=== PATIENT | female | born 1940 | race Caucasian/White ===

== ENCOUNTER → 2016-10-07 | Outpatient (CLI) | payer MEDICARE, BC ==
--- NOTE | 2016-10-07 14:48 | RAD ---
DATE: 10/07/2016 EXAM: MAMMO ELIU SCREENING BILATERAL HISTORY: Screening COMPARISON: One year earlier This study was interpreted with the benefit of Computerized Aided Detection (CAD). FINDINGS: The breast parenchyma shows scattered fibroglandular densities. Breast parenchyma level B. There has not been a significant change in the appearance of the breasts compared to the previous exam IMPRESSION: Benign findings BI-RADS CATEGORY: 2 BENIGN FINDING(S) RECOMMENDED FOLLOW-UP: 12M 12 MONTH FOLLOW-UP PQRS compliance statement: Patient information was entered into a reminder system with a target due date 10/07/2017 for the next mammogram. Mammography is a sensitive method for finding small breast cancers, but it does not detect them all and is not a substitute for careful clinical examination. A negative mammogram does not negate a clinically suspicious finding and should not result in delay in biopsying a clinically suspicious abnormality. "Our facility is accredited by the [employer] Mammography [employer]."
== END | disposition home or self-care (01) ==
LOC: MAMMO 10:54
PROVIDERS: ATTEND Internal Medicine
DX: Z12.31 Encounter for screening mammogram for malignant neoplasm of breast (principal)
CPT/HCPCS: 77063; G0202; 77067

== ENCOUNTER → 2017-03-31 | Outpatient (CLI) | payer MEDICARE, BC ==
[~2017-03-31] MED LIST: BUPIVACAINE MPF 0.25% 10 ML VIAL. ONE; BUPIVACAINE MPF 0.5% 30 ML VIAL. ONE; IOHEXOL 300 MG/ML 50 ML VIAL. ONE; LIDOCAINE 1% PF 30 ML VIAL. ONE; methylPREDNISolone ACETATE 40 MG/ML VIAL. ONE
== END | disposition home or self-care (01) ==
LOC: SURG 13:59
PROVIDERS: ATTEND Anesthesiology
DX: M17.12 Unilateral primary osteoarthritis, left knee (principal); J45.909 Unspecified asthma, uncomplicated; M19.91 Primary osteoarthritis, unspecified site; E07.9 Disorder of thyroid, unspecified
CPT/HCPCS: 64450; J1030; J2001; J3490; Q9967

== ENCOUNTER → 2017-05-05 | Outpatient (CLI) | payer MEDICARE, BC ==
[~2017-05-05] MED LIST changes: -BUPIVACAINE MPF 0.5% 30 ML VIAL. ONE; +DEXAMETHASONE SOD PHOS 4 MG/ML VIAL ONE; -IOHEXOL 300 MG/ML 50 ML VIAL. ONE; +IV NORMAL SALINE 250ML 250 ML ONE; +LIDOCAINE (700MG/PATCH) PATCH. ONE; +MIDAZOLAM HCL PF 2 MG/2 ML VIAL. ONE; -methylPREDNISolone ACETATE 40 MG/ML VIAL. ONE
== END | disposition home or self-care (01) ==
LOC: SURG 13:11
PROVIDERS: ATTEND Anesthesiology
DX: M25.562 Pain in left knee (principal); Z96.652 Presence of left artificial knee joint
CPT/HCPCS: 64640; J1100; J2001; J2250; J3010; J3490; J7050; 64636

== ENCOUNTER → 2017-06-02 | Outpatient (CLI) | payer MEDICARE, BC | END | disposition home or self-care (01) | LOC: SURG 12:21 | PROVIDERS: ATTEND Anesthesiology | DX: M25.569 Pain in unspecified knee (principal); M79.2 Neuralgia and neuritis, unspecified; Z96.659 Presence of unspecified artificial knee joint | CPT/HCPCS: 99214 ==

== ENCOUNTER → 2017-07-14 | Outpatient (CLI) | payer MEDICARE, BC | END | disposition home or self-care (01) | LOC: SURG 13:11 | PROVIDERS: ATTEND Anesthesiology | DX: M25.561 Pain in right knee (principal); M25.562 Pain in left knee; Z96.659 Presence of unspecified artificial knee joint | CPT/HCPCS: 99214 ==

== ENCOUNTER → 2017-10-08 | Outpatient (CLI) | payer MEDICARE, BC ==
--- NOTE | 2017-10-08 12:56 | RAD ---
DATE: October 08, 2017 EXAM: MAMMO ELIU SCREENING BILATERAL HISTORY: Routine screening. COMPARISON: October 07, 2016. October 02, 2015. TECHNIQUE: 2D digital CC and MLO views were obtained. 3D tomosynthesis imaging was performed in the CC and MLO projections. This study was interpreted with the benefit of Computerized Aided Detection (CAD). FINDINGS: The breast parenchyma demonstrates scattered fibroglandular densities, category B. There is no worrisome mass or area of architectural distortion. Probable intraparenchymal lymph nodes or small cysts in the left breast inferiorly are stable. Few benign-appearing calcifications are noted, no suspicious groupings of microcalcifications are apparent. IMPRESSION: Benign findings. BI-RADS CATEGORY: 2 BENIGN FINDING RECOMMENDED FOLLOW-UP: 12M 12 MONTH FOLLOW-UP PQRS compliance statement: Patient information was entered into a reminder system with a target due date for the next mammogram. Mammography is a sensitive method for finding small breast cancers, but it does not detect them all and is not a substitute for careful clinical examination. A negative mammogram does not negate a clinically suspicious finding and should not result in delay in biopsying a clinically suspicious abnormality. "Our facility is accredited by the [employer] Mammography [employer]."
== END | disposition home or self-care (01) ==
LOC: MAMMO 10:44
PROVIDERS: ATTEND Internal Medicine
DX: Z12.31 Encounter for screening mammogram for malignant neoplasm of breast (principal); Z96.652 Presence of left artificial knee joint
CPT/HCPCS: 77063; 77067

== ENCOUNTER → 2017-10-13 | Outpatient (CLI) | payer MEDICARE, BC | END | disposition home or self-care (01) | LOC: SURG 12:42 | PROVIDERS: ATTEND Anesthesiology | DX: M25.561 Pain in right knee (principal); M25.562 Pain in left knee; M79.2 Neuralgia and neuritis, unspecified; Z96.652 Presence of left artificial knee joint | CPT/HCPCS: 99214 ==

== ENCOUNTER → 2018-10-21 | Outpatient (CLI) | payer MEDICARE, BC ==
--- NOTE | 2018-10-21 12:50 | RAD ---
DATE: 10/21/2018 EXAM: MAMMO ELIU SCREENING BILATERAL HISTORY: Routine screening COMPARISON: 10/08/2017 This study was interpreted with the benefit of Computerized Aided Detection (CAD). Breast Density: SCATTERED The breast parenchyma shows scattered fibroglandular densities. Breast parenchyma level B. FINDINGS: 2-D and 3-D tomosynthesis imaging was performed in CC and MLO projections. Several small smooth nodules in both breasts appear unchanged. No spiculated mass or architectural distortion is evident. No suspicious microcalcifications are evident. IMPRESSION: Stable mammograms without evidence of malignancy. BI-RADS CATEGORY: 2 BENIGN FINDING(S) RECOMMENDED FOLLOW-UP: 12M 12 MONTH FOLLOW-UP PQRS compliance statement: Patient information was entered into a reminder system with a target due date for the next mammogram. Mammography is a sensitive method for finding small breast cancers, but it does not detect them all and is not a substitute for careful clinical examination. A negative mammogram does not negate a clinically suspicious finding and should not result in delay in biopsying a clinically suspicious abnormality. "Our facility is accredited by the [employer] Mammography [employer]."
== END | disposition home or self-care (01) ==
LOC: MAMMO 11:11
PROVIDERS: ATTEND Internal Medicine
DX: Z12.31 Encounter for screening mammogram for malignant neoplasm of breast (principal); N63.20 Unspecified lump in the left breast, unspecified quadrant; N63.10 Unspecified lump in the right breast, unspecified quadrant
CPT/HCPCS: 77063; 77067

== ENCOUNTER → 2019-11-02 | Outpatient (CLI) | payer MEDICARE, BC ==
--- NOTE | 2019-11-04 18:15 | RAD ---
DATE: 11/02/2019 10:50 AM EXAM: MAMMO ELIU SCREENING BILATERAL HISTORY: Screening COMPARISON: 10/21/2018 Bilateral CC and MLO views of the breasts were performed. Bilateral breast tomosynthesis was performed in CC and MLO projections. This study was interpreted with the benefit of Computerized Aided Detection (CAD). FINDINGS: Breast Density: SCATTERED The breast parenchyma shows scattered fibroglandular densities. Breast parenchyma level B No suspicious masses, microcalcifications or architectural distortion is present to suggest malignancy in either breast. The visualized axillae are unremarkable. IMPRESSION: No mammographic evidence of malignancy. BI-RADS CATEGORY: 1 NEGATIVE RECOMMENDED FOLLOW-UP: 12M 12 MONTH FOLLOW-UP Annual screening mammography is recommended, unless clinically indicated sooner based on symptoms or change in physical exam. PQRS compliance statement: Patient information was entered into a reminder system with a target due date 11/02/2020 for the next mammogram. Mammography is a sensitive method for finding small breast cancers, but it does not detect them all and is not a substitute for careful clinical examination. A negative mammogram does not negate a clinically suspicious finding and should not result in delay in biopsying a clinically suspicious abnormality. "Our facility is accredited by the [employer] Mammography [employer]."
== END | disposition home or self-care (01) ==
LOC: MAMMO 10:39
PROVIDERS: ATTEND Internal Medicine
DX: Z12.31 Encounter for screening mammogram for malignant neoplasm of breast (principal)
CPT/HCPCS: 77063; 77067

== ENCOUNTER → 2020-11-05 | Outpatient (CLI) | payer MEDICARE, BC ==
--- NOTE | 2020-11-05 10:49 | RAD ---
EXAM: Bilateral digital screening mammogram with tomosynthesis. HISTORY: 80-year-old female presents for screening mammography. TECHNIQUE: Full-field digital craniocaudal and mediolateral oblique 2D and 3D tomosynthesis images of both breasts are obtained for evaluation. Computer aided detection was applied. COMPARISON: 11/02/2019 BREAST PARENCHYMAL DENSITY: Level B - Scattered fibroglandular densities. FINDINGS: There is no new suspicious mass, microcalcification or region of architectural distortion. IMPRESSION: BI-RADS Category 2: Benign finding(s). RECOMMENDATION: Annual mammography is recommended. If your mammogram demonstrates that you have dense breast tissue, which could hide abnormalities, and if you have other risk factors for breast cancer that have been identified, you might benefit from s upplemental screening tests that may be suggested by your ordering physician. Dense breast tissue, i n and of itself, is a relatively common condition. This information is not provided to cause undue c oncern, but rather to raise your awareness and to promote discussion with your physician regarding th e presence of other risk factors, in addition to dense breast tissue. A report of your mammography re sults will be sent to you and your physician. You should contact your physician if you have any ques tions or concerns regarding this report. Mammography is a sensitive method for finding small breast cancers, but it does not detect them all a nd is not a substitute for careful clinical examination. A negative mammogram does not negate a clin ically suspicious finding and should not result in delay in biopsying a clinically suspicious abnorma lity. PQRS compliance statement - Patient information was entered into a reminder system with a target due date for the next mammogram. "Our facility is accredited by the [employer] Mammography Program." Electronically signed by: Livier Amato MD (11/05/2020 10:47 AM) [id number]
== END ==
LOC: MAMMO 09:36
PROVIDERS: ATTEND Internal Medicine
DX: Z12.31 Encounter for screening mammogram for malignant neoplasm of breast (principal)
CPT/HCPCS: 77063; 77067

== ENCOUNTER 2021-04-16 05:58 | Observation (INO) | payer MEDICARE, BC ==
[~2021-04-16] VITALS: Ht 162.6 cm; Wt 86.8 kg
--- NOTE | 2021-04-16 06:50 | PHYS DOC ---
Past History Additional Past Medical Histor: cva x 2(has trouble recalling words),tubal Past Medical History Limited secondary to altered mental status. Past Surgical History: Hysterectomy, Knee Replacement Past Surgical History Limited secondary to altered mental status. Social History Limited secondary to altered mental status. General Adult EDM: Chief Complaint: ALTERED MENTAL STATUS HPI: HPI: 80-year-old female presents via EMS with report of altered mental status upon waking this morning. Patient's last known well at 2000 per spouse. Patient does have history of prior CVA and seizure.. Spouse denies known trauma. Spouse reports patient appeared to be trying glasses on over another pair glasses and was trying to put a sweatshirt where the arms were over her legs. Patient normally does have some baseline confusion and cannot recall date of and some words however this was a change in her mentation per spouse. Patient did receive a third Materna booster yesterday. Patient denies any pain. Denies dysuria or increased urinary frequency. Denies cough. Denies known fever. History of present illness limited secondary to altered mental status. Review of Systems: Review of Systems: Constitutional: Denies fever Respiratory: Denies cough GI: Denies vomiting : Denies dysuria Integument: Denies rash Neurologic: Reports altered mental status Review of systems limited secondary to altered mental status. Current Medications: Current Meds: Current Medications Medications (Trade) Dose Ordered Sig/Jony Start Time Stop Time Status Last Admin Dose Admin Acetaminophen (Tylenol) 500 mg 1X ONCE 04/16/21 07:00 04/16/21 07:01 Sodium Chloride 1,000 ml @ 1,000 mls/hr 1X ONCE 04/16/21 07:00 04/16/21 07:59 Allergies: Allergies: Allergies Coded Allergies Type Severity Reaction Last Updated Verified No Known Drug Allergies 04/16/21 No Physical Exam: PE: Constitutional: Well developed, well nourished, no acute distress, non-toxic appearance HENT: Normocephalic, atraumatic Eyes: PERRL, EOMI, conjunctiva normal, no discharge, no nystagmus Neck: Normal range of motion, no tenderness, supple, no meningeal signs Lungs & Thorax: No respiratory distress, equal chest rise and fall Abdomen: Soft, no tenderness, no guarding/rebound tenderness/distention Skin: Warm, dry, no erythema, no rash Extremities: No tenderness, ROM intact, no edema Neurologic: Alert and oriented X name only, normal motor function, normal sensory function, no focal deficits noted Psychologic: Affect flat, judgment abnormal Current Patient Data: Vital Signs: Vital Signs Date Time Temp Pulse Resp B/P (MAP) Pulse Ox O2 Delivery O2 Flow Rate FiO2 04/16/21 06:30 89 20 134/66 (88) 94 Room Air 04/16/21 05:58 101.9 EKG: EKG: @0637 NSR at 93bpm, NO ST elevation, QRS 98ms, QT/QTc 358/448ms Radiology/Procedures: Radiology/Procedures: PROCEDURE: PORTABLE CHEST 1V XR CHEST 1V Clinical History: Reason: altered mental status, fever / Spl. Instructions: / History: Technique: AP view of the chest was obtained at 04/16/2021 7:25 AM. Comparison: None. Findings: The cardiomediastinal silhouette is normal. The pulmonary vessels are slightly cephalized. Mild reticular opacities are likely chronic pulmonary fibrosis. Impression: No evidence of an acute cardiopulmonary process. Electronically signed by: Vipul Valdivia III, MD (04/16/2021 7:49 AM) [facility] PROCEDURE: CT HEAD WO CONTRAST CT Head W/O Contrast: History: Reason: altered mental status / Spl. Instructions: / History: Comparison: none Axial images were obtained without contrast. There is moderate diffuse atrophy. There is no mass effect, extraaxial fluid collections or hydrocephalus. There is no gross bleed. Moderate, patchy periventricular and subcortical white matter hypoattenuation is seen. There is an old lacunar infarct in the left basal ganglia. Mild cephalization the parasagittal right frontal lobe is likely an old cortical infarct. There is no focal loss of degroot-white matter distinction to suggest acute ischemia, i.e. stroke. Impression: 1. Moderate atrophy and chronic white matter changes. 2. Old strokes bilaterally. No acute findings. End impression PQRS Compliance Statement: One or more of the following individualized dose reduction techniques were utilized for this examination: 1. Automated exposure control 2. Adjustment of the mA and/or kV according to patient size 3. Use of iterative reconstruction technique Electronically signed by: Vipul Valdivia III, MD (04/16/2021 7:53 AM) [facility] Heart Score: C/O Chest Pain: N/A Course & Med Decision Making: Course & Med Decision Making Pertinent Labs and Imaging studies reviewed. (See chart for details) Elderly patient with past medical history of prior CVAs and seizure disorder presents with report of altered mental status. Last known well at approximately 2000 last night. Patient is confused upon arrival however appears more at her baseline per spouse. GCS 14. NIHSS 1 due to confusion. SIRS criteria met with heart rate greater than 90 and fever. Patient did receive booster Materna shot yesterday. CT head without acute finding. Chest x-ray clear. Labs obtained and posted to chart. WBC and lactic acid within normal limits. Blood culture and urine cul ture pending. Rapid Covid testing negative. Empiric antibiotic provided with 1 g of Rocephin. Given risk factors patient requiring observation admission for further evaluation and treatment. Discussed with Dr. Charles (hospitalist) who is in agreement with admission. Discussed findings and plan with patient and family, who acknowledge understanding and agreement. Dragon Disclaimer: Dragon Disclaimer: This electronic medical record was generated, in whole or in part, using a voice recognition dictation system. Departure Departure: Impression: Primary Impression: Altered mental status Qualified Codes: R41.82 - Altered mental status, unspecified Additional Impressions: SIRS (systemic inflammatory response syndrome) Fever Qualified Codes: R50.9 - Fever, unspecified Disposition: ADMITTED INPATIENT Condition: STABLE Referrals: MARIELA DIAZ MD (PCP) NIHSS - ED NIH Stroke Scale: NIH Stroke Scale Response (Comments) Value Level of Consciousness: 0 Alert/Responsive 0 LOC Questions: 1 Answers one correctly 1 LOC Commands: 0 Performs both tasks 0 Best Gaze: 0 Normal 0 Visual: 0 No visual loss 0 Facial Palsy: 0 Normal, symmetrical 0 Motor - Left Arm 0 No drift 0 Motor - Right Arm 0 No drift 0 Motor - Left Leg 0 No drift 0 Motor: Right Leg 0 No drift 0 Limb Ataxia: 0 Absent 0 Sensory: 0 No loss 0 Best Language: 0 Normal 0 Dysathria: 0 Normal 0 Extinction and Inattention: 0 Normal 0 Total 1 BARNESNOEMI DO Apr 16, 2021 06:50
[2021-04-16 07:00] LABS: BASO # 0.1 x10^3/uL (0.0-0.2); BASO % 1 % (0-3); EOS # 0.1 x10^3/uL (0.0-0.7); EOS % 1 % (0-3); HEMATOCRIT 43.4 % (36.0-47.0); HEMOGLOBIN 14.5 g/dL (12.0-15.5); LYMPH # 0.4 x10^3/uL (1.0-4.8); LYMPH % 5 % (24-48); MEAN CORPUSCULAR HEMOGLOBIN 31 pg (25-35); MEAN CORPUSCULAR HGB CONC 33 g/dL (31-37); MEAN CORPUSCULAR VOLUME 92 fL (79-100); MONO % 11 % (0-9); NEUT # 7.8 x10^3uL (1.8-7.7); NEUT % 83 % (31-73); PLATELET COUNT 173 x10^3/uL (140-400); RED CELL DISTRIBUTION WIDTH 14.9 % (11.5-14.5); WHITE BLOOD COUNT 9.4 x10^3/uL (4.0-11.0)
[2021-04-16] MEDS ORDERED: IV NORMAL SALINE 1,000ML 1,000 ML IV ONE (07:00)
[2021-04-16] MEDS ORDERED: ACETAMINOPHEN 500 MG TABLET PO ONE (07:00)
[2021-04-16 07:07] LABS: BACTERIA,URINE 0 /HPF (0-FEW); BILIRUBIN,URINE NEG (NEG); CLARITY,URINE CLEAR; COLOR,URINE YELLOW; GLUCOSE,URINE NEG (NEG); NITRITE,URINE NEG (NEG); RBC,URINE RARE /HPF (0-2); SQUAMOUS EPITHELIAL CELL,UR OCC /LPF; UROBILINOGEN,URINE 0.2 mg/dL (0.2 mg/dL); WBC,URINE RARE /HPF (0-4)
[2021-04-16 07:08] LABS: CALCIUM 8.8 mg/dL (8.5-10.1); CREATININE 1.1 mg/dL (0.6-1.0); GFR 47.9; POTASSIUM 4.3 mmol/L (3.5-5.1)
[2021-04-16 07:21] LABS: ALBUMIN 3.4 g/dL (3.4-5.0); MAGNESIUM 1.9 mg/dL (1.8-2.4); TOTAL BILIRUBIN 0.5 mg/dL (0.2-1.0); TOTAL PROTEIN 6.7 g/dL (6.4-8.2)
--- NOTE | 2021-04-16 07:52 | RAD ---
XR CHEST 1V Clinical History: Reason: altered mental status, fever / Spl. Instructions: / History: Technique: AP view of the chest was obtained at 04/16/2021 7:25 AM. Comparison: None. Findings: The cardiomediastinal silhouette is normal. The pulmonary vessels are slightly cephalized. Mild retic ular opacities are likely chronic pulmonary fibrosis. Impression: No evidence of an acute cardiopulmonary process. Electronically signed by: Vipul Valdivia III, MD (04/16/2021 7:49 AM) [facility]
--- NOTE | 2021-04-16 07:55 | RAD ---
CT Head W/O Contrast: History: Reason: altered mental status / Spl. Instructions: / History: Comparison: none Axial images were obtained without contrast. There is moderate diffuse atrophy. There is no mass effect, extraaxial fluid collections or hydrocep halus. There is no gross bleed. Moderate, patchy periventricular and subcortical white matter hypoat tenuation is seen. There is an old lacunar infarct in the left basal ganglia. Mild cephalization the parasagittal right frontal lobe is likely an old cortical infarct. There is no focal loss of degroot-whi te matter distinction to suggest acute ischemia, i.e. stroke. Impression: 1. Moderate atrophy and chronic white matter changes. 2. Old strokes bilaterally. No acute findings. End impression PQRS Compliance Statement: One or more of the following individualized dose reduction techniques were utilized for this examinat ion: 1. Automated exposure control 2. Adjustment of the mA and/or kV according to patient size 3. Use of iterative reconstruction technique Electronically signed by: Vipul Valdivia III, MD (04/16/2021 7:53 AM) [facility]
--- NOTE | 2021-04-16 08:04 | EKG ---
[address] [address] Test Date: 2021-04-16 Test Time: 06:37:56 Pat Name: SHAILESH WILLIS Department: Room: Gender: F Collision Estimator: JAZMIN : 1940 Requested By: NOEMI BARNES Order Number: [id number] Reading MD: Iggy Voss Measurements Intervals [place] Rate: 93 P: 37 NM: 130 QRS: 4 QRSD: 98 T: 34 QT: 358 QTc: 448 Interpretive Statements SINUS RHYTHM NORMAL ECG RI6.02 No previous ECG available for comparison Electronically Signed On 04-17-2021 16:02:13 CDT by Iggy Voss
[2021-04-16] MEDS ORDERED: IV NORMAL SALINE 50ML 50 ML ONE (10:17)
[2021-04-16] MEDS ORDERED: cefTRIAXone SODIUM 1 GM VIAL ONE (10:17)
[2021-04-16] MEDS ORDERED: ATORVASTATIN CA80 MG PO (11:31)
[2021-04-16] MEDS ORDERED: LEVE500T56 PO (11:31)
[2021-04-16] MEDS ORDERED: SERT-268 PO (11:31)
[2021-04-16] MEDS ORDERED: LEVO75TA PO (11:31)
[2021-04-16] MEDS ORDERED: PREG50CA PO (11:31)
[2021-04-16] MEDS ORDERED: LISI5TAB15 PO (11:31)
[2021-04-16] MEDS ORDERED: CHOL400T36 PO (11:31)
[2021-04-16 11:36] VITALS: BP 124/65
--- NOTE | 2021-04-16 12:11 | HP ---
DATE OF SERVICE: 04/16/2021 ADMIT DATE: 04/16/2021 ATTENDING PHYSICIAN: Dr. Charles. CHIEF COMPLAINT: Confusion. HISTORY OF PRESENT ILLNESS: The patient is a 80-year-old female who is fairly active and lives at home with her . She just had her 3rd COVID vaccine booster shot yesterday. She was doing well last night. This morning, she woke up confused. She had altered mentation. She has a previous history of strokes and seizures, but no active seizure. She could not remember her date of , some words were garbled. She was sent to the ED for evaluation. They were concerned about a new stroke. The CT of the head showed no acute strokes or bleeds. Her blood work was unremarkable. She had cultures drawn and empiric antibiotics were given. She has no other symptoms. By the time I saw her, she was starting to get back to her baseline. She was therefore admitted overnight for observation regarding altered mentation due to recent COVID booster shot. PAST MEDICAL HISTORY: Significant for stroke, seizure disorder. She also has hypertension, hyperlipidemia. CURRENT MEDICATIONS: Include Synthroid 75 mcg daily, lisinopril 5 mg daily, Keppra 500 mg b.i.d., Lipitor, Zoloft 50 mg at bedtime. SURGICAL HISTORY: Tubal ligation, hysterectomy and knee replacement. SOCIAL HISTORY: Nonsmoker, nondrinker. ALLERGIES: She has no recorded drug allergies. FAMILY HISTORY: Her mom of leukemia at age 72. Father of heart disease in his late 50s. REVIEW OF SYSTEMS: Significant for the recent booster shot. No recent travel. She does not have COVID. No fevers, chills. All other systems reviewed and turned to be negative. PHYSICAL EXAMINATION: GENERAL: When I saw her, this is a pleasant elderly female who was fairly alert. Speech is fluent now. VITAL SIGNS: Initial vital signs showed a blood pressure 138/59 mmHg, temperature 101.9 degrees Fahrenheit, pulse 93 and regular, oxygen saturation 94% on room air. HEENT: Head is without trauma. Pupils are reactive. Sclerae nonicteric. Oropharynx clear. NECK: Supple, no bruits. LUNGS: Otherwise clear. CARDIOVASCULAR: Regular heart tones. ABDOMEN: Soft, obese, protuberant. No organomegaly. Bowel sounds were hypoactive. EXTREMITIES: Show no cyanosis or edema. NEUROLOGIC: Focally intact. Speech is fluent. SKIN: Warm and dry. PERTINENT LABORATORY STUDIES: Admission hemoglobin was 14.5 g/dL, white count was 9400. Electrolytes all within normal range. Creatinine is 1.1 mg/dL. Nonfasting blood sugar 126. Initial cardiac enzymes are nonischemic and her transaminases and liver panel was unremarkable. Her urinalysis was clear. Serology rapid COVID screen was negative. ASSESSMENT: 1. A 80-year-old female with altered mentation related to recent COVID booster vaccine shot, this is her third shot. 2. Old stroke with residual deficit. 3. Focus of seizure disorder. 4. Essential hypertension. 5. Hypothyroidism. 6. Febrile illness related to vaccine. There are no localizing signs of active infection at this time. PLAN: 1. Observation status. 2. Continue home meds. 3. Cultures have been drawn, which will be negative. She has no source of infection at this time. 4. Dr. Chadwick will see the patient in the morning. If she is stable and afebrile and vital signs stable, she can be discharged home at that time. NEETA/RUDDY/CORRY DR: Marlena TID: [id number] CC: Mello Harkins MD
[2021-04-16 15:00] VITALS: BP 131/64
[2021-04-16] MEDS ORDERED: ACETAMINOPHEN 325 MG TABLET PO PRN (15:45)
[2021-04-16] MEDS: PREGABALIN 50 MG CAPSULE PO SCH ×2 (16:25→20:19)
[2021-04-16 19:06] VITALS: BP 125/63
[2021-04-16] MEDS: levETIRAcetam 500 MG TABLET PO SCH (20:19)
[2021-04-16] MEDS ORDERED: SERTRALINE 50 MG TABLET. PO SCH (21:00)
[2021-04-16] MEDS ORDERED: ATORVASTATIN CALCIUM 20 MG TABLET PO SCH (21:00)
[2021-04-16 22:49] VITALS: BP 106/63
[2021-04-17 05:31] VITALS: BP 121/68
[2021-04-17] MEDS ORDERED: LEVOTHYROXINE 75 MCG TABLET PO SCH (06:00)
[2021-04-17] MEDS: levETIRAcetam 500 MG TABLET PO SCH (08:22)
[2021-04-17] MEDS: PREGABALIN 50 MG CAPSULE PO SCH ×2 (08:22→12:45)
[2021-04-17] MEDS ORDERED: CHOLECALCIFEROL (VITAMIN D3) 1,000 UNIT TABLET PO SCH (09:00)
[2021-04-17] MEDS ORDERED: LISINOPRIL 5 MG TABLET. PO SCH (09:00)
[2021-04-17 10:49] VITALS: BP 113/63
--- NOTE | 2021-04-17 12:12 | DISCH ---
HOME HEALTH DISCHARGE/MEDS DISCHARGE INFORMATION: Discharge Date: Apr 17, 2021 Final Diagnosis: Problems Medical Problems: (1) Altered mental status Status: Acute (2) Fever Status: Acute (3) SIRS (systemic inflammatory response syndrome) Status: Acute Condition on Discharge: Stable CODE STATUS: Code Status: Full HOME HEALTH: Face to Face: /I certify this patient is under my care and that I, or a nurse practitioner or physician's grants assistant working with me, had a face to face encounter that meets the physician face to face encounter requirements with this patient on/ Residential For: Admin/Educate Injections, Medication Management Physical Therapy For: Evalulation/Treatment Occupational Therapy For: Evaluation/Treatment Homebound Status Met By: Extreme weakness w/ amb. POST DISCHARGE ORDERS: Activity Instructions for Disc: Activity as tolerated DIET AFTER DISCHARGE: Cardiac CERTIFICATION STATEMENT: Certification Statement: Based on the above finding, I certify that this patient is confined to the home and needs intermittent long term care, physical therapy and/or speech therapy, or continues to need occupational therapy.~ This patient is under my care, and I have initiated the establishment of the plan of care.~ This patient will be followed by myself or a community physician who will periodically review the plan of care. DISCHARGE MEDICATIONS: Home Meds Reported Medications Atorvastatin Calcium (ATORVASTATIN CALCIUM) 80 Mg Tablet, 1 TAB PO QHS for HLD, #30 TAB 5 Refills 04/16/21 Sertraline Hcl (SERTRALINE HCL) 50 Mg Tablet, 50 MG PO QHS for ANTI-DEPRESSANT, TAB 0 Refills 04/16/21 Levetiracetam (KEPPRA) 500 Mg Tablet, 1 TAB PO BID for seizures for 30 Days, #60 TAB 0 Refills 04/16/21 Pregabalin (LYRICA) 50 Mg Capsule, 1 CAP PO QID for pain, #90 CAP 04/16/21 Lisinopril (LISINOPRIL) 5 Mg Tablet, 1 TAB PO DAILY for htn, #30 TAB 5 Refills 04/16/21 Cholecalciferol (Vitamin D3) (VITAMIN D) 400 Unit Tablet, 1000 UNIT PO DAILY for supplement, TAB 04/16/21 Levothyroxine Sodium (SYNTHROID) 75 Mcg Tablet, 1 TAB PO DAILY for hypothyroid, #30 TAB 5 Refills 04/16/21 SHANICE VASQUES MD Apr 17, 2021 12:11
--- NOTE | 2021-04-17 12:31 | DS ---
DATE OF DISCHARGE: 04/17/2021 HOSPITAL COURSE: The patient is a 80-year-old female patient who apparently has received her third COVID vaccine booster shot on 04/15/2021. She apparently is active and lives at home with her and the night before admission, she became more confused with altered mentation. She has a previous history of strokes and seizures, but no active seizures. She could not remember her date of . Some words were garbled. She was sent to the Emergency Room for evaluation. They were concerned about a new stroke. CT scan of the head shows no acute stroke or bleed. Her lab works were unremarkable. Her physical exam was unremarkable and showed no obvious neurological deficit. When I examined her this morning, she was sitting at the edge of the bed, eating her lunch comfortably, in no apparent distress. On questioning her, denied any complaint. PHYSICAL EXAMINATION: GENERAL: On examining her, she looked well and was clearly in no apparent respiratory distress. No pallor, jaundice, cyanosis or thyromegaly. No jugular venous distention. No limb edema. VITAL SIGNS: His heart rate was 86, blood pressure was 113/63, temperature 97.7, respiratory rate 20, and oxygen saturation was 91% on room air. HEAD, EYES, EARS, NOSE, AND THROAT: Normocephalic, atraumatic. NECK: Supple. HEART: Showed normal first and second heart sounds. No gallop, rub or murmur. CHEST: Clear to auscultation, no crepitation or rhonchi. ABDOMEN: Distended, soft, nontender. NEUROLOGIC: She is awake, alert, responding appropriately. All her cranial nerves intact. She moves extremities without difficulty. She apparently ambulates without assistance or assistive devices. LABORATORY DATA: Showed a white cell count 9400, hemoglobin 14.5, hematocrit 43, MCV 92 and platelet count of 173,000 with normal manual differential. Her chemistry showed a serum sodium 142, potassium 4.3, chloride 106, bicarbonate 27, anion gap of 9, BUN 17, creatinine 1.1. Estimated GFR was 48 mL per minute. Her glucose 126, calcium was 8.8, magnesium 1.9. Total bilirubin, AST, ALT, alkaline phosphatase were normal. Total protein 6.7, albumin was 3.4. His serum ammonia was 20 mmol/L. Her urinalysis was essentially unremarkable and her coronavirus by PCR was negative. The patient was evaluated in physical therapy and she apparently has been ambulating without any assistance or assistive devices. DISCHARGE MEDICATIONS: She was discharged home with home health to continue on atorvastatin calcium 80 mg at bedtime, cholecalciferol 1000 units once a day, levetiracetam for Keppra 500 mg twice a day, levothyroxine sodium 75 mcg once a day, lisinopril 5 mg once a day, pregabalin for Lyrica 50 mg 4 times a day, and sertraline 50 mg p.o. at bedtime as an antidepressant. FINAL DISCHARGE DIAGNOSES: Altered mental status, resolved. Other medical problems include stroke, seizure disorder, hypertension, hyperlipidemia and hypothyroidism. TIFFANIE DR: Heidi TID: [id number]
== END 2021-04-17 14:56 | disposition home health service (06) ==
LOC: ER 05:58 → INTOOBSV 09:46 → 1 SOUTH 09:46 → OBSVTOIN 09:46
PROVIDERS: ADMIT Hospitalist; ATTEND Hospitalist
DX: R41.82 Altered mental status, unspecified (principal); Z20.822 Contact with and (suspected) exposure to COVID-19; I25.2 Old myocardial infarction; R56.9 Unspecified convulsions; I10 Essential (primary) hypertension; E03.9 Hypothyroidism, unspecified; R50.9 Fever, unspecified; E78.5 Hyperlipidemia, unspecified; I63.9 Cerebral infarction, unspecified; I69.30 Unspecified sequelae of cerebral infarction; R65.10 Systemic inflammatory response syndrome (SIRS) of non-infectious origin without acute organ dysfunction; Z90.710 Acquired absence of both cervix and uterus; Z96.659 Presence of unspecified artificial knee joint; Z98.51 Tubal ligation status
CPT/HCPCS: 70450; 71045; 80053; 81001; 82140; 82553; 83735; 84484; 85025; 87040; 87086; 87426; 93005; 96361; 96365; 97116; 97162; 97165; 97530; 99285; G0378; G0379; J0696; J7030; U0003; 36415; 80177